=== PATIENT | female | born 1935 | race Caucasian/White ===

== ENCOUNTER 2018-08-10 23:28 | Inpatient (IN) | payer MEDICARE ==
[~2018-08-10] VITALS: Ht 162.6 cm; Wt 57.2 kg
[2018-08-10 23:33] VITALS: BP_SYST 158
--- NOTE | 2018-08-10 23:35 | NUR ---
Patient brought in by EMS. aaox4 and able to verbalize her needs. Able to ambulate with a steady. Complaints s/p fall from standing position which was unwitnessed. Patient states she was twisting her body to place a device on a craddle. States from foot came out of her slippers and tripped. Patient hit her head on the table and injured left side and left head with with laceration. Pain is at 8/10 and the back. Denies any n/v and sob. Denies any fever.
--- NOTE | 2018-08-10 23:36 | NUR ---
Patient to ER bed 06 to gown for evaluation. Side rails up. Report given to CIELO Pantoja
--- NOTE | 2018-08-11 00:24 | NUR ---
ER at bedside examining patient.
[2018-08-11] MEDS ORDERED: ACETAMINOPHEN 500 MG TABLET PO ONE (00:45)
[2018-08-11] MEDS ORDERED: LIDOCAINE 1%, 20 ML MDV 20 ML ONE (03:06)
[2018-08-11 03:32] LABS: BASOPHILS % (AUTO) 0.2 % (0.0-2.0); EOSINOPHILS # (AUTO) 0.2 K/uL (0.0-0.4); EOSINOPHILS % (AUTO) 1.7 % (0.0-4.0); HEMATOCRIT 33.6 % (36-48); HEMOGLOBIN 11.3 g/dL (12.0-16.0); LYMPHOCYTES # (AUTO) 0.8 K/uL (1.0-5.5); LYMPHOCYTES % (AUTO) 6.3 % (20.5-51.5); MEAN CORPUSCULAR HEMOGLOBIN 31 pg (27-31); MEAN CORPUSCULAR HGB CONC 34 % (32-36); MEAN CORPUSCULAR VOLUME 93 fL (79.0-98.0); MONOCYTES # (AUTO) 0.9 K/uL (0.0-1.0); MONOCYTES % (AUTO) 7.2 % (1.7-9.3); NEUTROPHILS % (AUTO) 84.6 % (40.0-70.0); PLATELET COUNT (AUTO) 187 K/uL (130-430); RED BLOOD CELL COUNT(AUTO) 3.62 MIL/uL (4.2-6.2); WHITE BLOOD COUNT (AUTO) 11.9 K/uL (4.8-10.8)
[2018-08-11 03:34] LABS: BILIRUBIN,URINE NEGATIVE (NEGATIVE); BLOOD, URINE NEGATIVE (NEGATIVE); CLARITY/URINE CLEAR (CLEAR); COLOR,URINE YELLOW (YELLOW); GLUCOSE,URINE NEGATIVE (NEGATIVE); KETONES,URINE NEGATIVE (NEGATIVE); LEUKOCYTE ESTERASE ,URINE 1+ (NEGATIVE); NITRITE, URINE NEGATIVE (NEGATIVE); PROTEIN URINE NEGATIVE (NEGATIVE); UROBILINOGEN,URINE 0.2 (0.2-1.0)
--- NOTE | 2018-08-11 03:45 | NUR ---
Patient has a 0.5 cm laceration to left occiput. Dr. Johnston applied judie using sterile technique. Edges well approximated. Site cleansed with Betadine. No bleeding noted. Pt tolerated well.
[2018-08-11 03:48] LABS: ANION GAP 8 (5-15); CHLORIDE 104 mmol/L (98-107); GLUCOSE 116 mg/dL (70-99); POTASSIUM 4.2 mmol/L (3.5-5.1); SODIUM SERUM 139 mmol/L (136-145); UREA NITROGEN, BLOOD 27 mg/dL (8-21)
[2018-08-11 03:57] LABS: ALANINE AMINOTRANSFERASE 13 U/L (12-78); ALBUMIN 2.9 g/dL (3.4-4.8); ASPARTATE AMINOTRANSFERASE 17 U/L (10-37); TOTAL BILIRUBIN 0.4 mg/dL (0.0-1.0)
[2018-08-11 03:58] LABS: BACTERIA,URINE FEW /HPF (None Seen)
[2018-08-11] MEDS ORDERED: VITD2000 PO (04:15)
[2018-08-11] MEDS ORDERED: CRAN1CAP8 PO (04:15)
[2018-08-11] MEDS ORDERED: METH2.5T PO (04:15)
[2018-08-11] MEDS ORDERED: MULT-1173 PO (04:15)
[2018-08-11] MEDS ORDERED: DONE5TAB33 PO (04:15)
[2018-08-11] MEDS ORDERED: ACYC400T PO (04:15)
[2018-08-11] MEDS ORDERED: FOLI-43 PO (04:15)
[2018-08-11] MEDS ORDERED: ASPI-1153 PO (04:15)
[2018-08-11] MEDS ORDERED: LYSI500T36 PO (04:15)
--- NOTE | 2018-08-11 04:16 | NUR ---
Medication reconciliation completed with information provided by son. Any prior medication reconciliation on file was reviewed and corrected. Addendum: 08/11/18 at 0435 by [email or web address] Medications reconcilation given by son via phone. SonWilian was reading medication bottles. Per pt, "those are not the right medications. You need to contact Shira, my caregiver." Son gave nurse [facility] phone number to verify medication list, [facility] and mail order [phone]. Pharmacy did not answer.
--- NOTE | 2018-08-11 04:55 | NUR ---
# 20 gauge angiocath placed to Left wrist. Use of asceptic technique. Opsite placed over site. Blood return noted. Flushed with 10 cc of normal saline. No evidence of infiltration noted. Patient tolerated well.
--- NOTE | 2018-08-11 05:12 | NUR ---
Medication was given, pt tolerated well. No adverse reaction, will continue to monitor.
[2018-08-11] MEDS ORDERED: ASPIRIN 325 MG TABLET PO ONE (05:15)
[2018-08-11] MEDS ORDERED: NITROGLYCERIN 0.4 MG TAB.SUBL SL PRN (05:15)
--- NOTE | 2018-08-11 05:21 | NUR ---
Transfer to Telemetry via ACLS protocol. Licensed nurse present. IV present no signs or symptoms of infiltration.
--- NOTE | 2018-08-11 05:21 | NUR ---
Patient will be admitted to care of Dr. Davidson. Admitted to Telemetry unit. Will go to room 104 B. Belongings list completed. Summary report printed. Report will be given at bedside.
[2018-08-11] MEDS ORDERED: ASPIRIN 325 MG TABLET ONE (05:23)
--- NOTE | 2018-08-11 05:38 | NUR ---
ADMISSION NOTE Received patient from ER via alex, received report from ROBE BUCK. Patient admitted with diagnosis of ELEVATED TROPONIN. Patient oriented to hospital routine, call light, toileting and safety-patient verbalized understanding.
[2018-08-11 05:48] VITALS: BP_SYST 138
--- NOTE | 2018-08-11 06:38 | NUR ---
Closing Notes Patient resting in bed with eyes closed, easily aroused. Patient denies any acute distress or pain at this time. Breathing is even and unlabored. IV site patent/clean/dry, no S/S infection/infiltration noted. Needs addressed throughout shift. Call light in hand, fall precautions in place. Will continue to monitor for changes and safety and endorse all patient care/needs to oncoming nurse.
--- NOTE | 2018-08-11 07:25 | NUR ---
Am Rounds: Patient awake during rounds. Bedside report given by night nurse donna. Hard of hearing. Not in any distress. Call light with in reach. Bed locked at lowest position. Bed alarm on.
--- NOTE | 2018-08-11 07:28 | NUR ---
CONSULTATION PAGED REASON FOR CONSULTATION:ELWEVATED TROPONIN WAS CONSULT CALLED?Y PERSON WHO WAS NOTIFIED:MOLLY CONSULTING PHYSICIAN:SHAINA BOGGS ( REEL WINDER) PLATFORM OPERATIONS DIRECTOR SPECIALTY:CARDIO PLATFORM OPERATIONS DIRECTOR PHONE NUMBER:[phone] ORDERING PHYSICIAN:MARIA TERESA KIM
--- NOTE | 2018-08-11 07:29 | NUR ---
CARDIAC CONSULT Dr. Dugan/ Dr. Perdomo prevocational/rehabilitation counselor Spoke to Mary , reason for consult elevated troponin
[2018-08-11] MEDS ORDERED: ALBUTEROL SULFATE 0.083% 2.5 MG/3 ML VIAL.NEB INH PRN (07:30)
[2018-08-11] MEDS ORDERED: ACETAMINOPHEN 325 MG TABLET PO PRN (07:30)
[2018-08-11] MEDS ORDERED: MORPHINE 4 MG/ML INJ. SYRINGE IVP PRN (07:30)
--- NOTE | 2018-08-11 07:30 | NUR ---
cardio: Spoke with Dr. sloan and aware about the consult and relayed elevated troponin.Ordered echo and repeat troponin,but Dr melchor put the order in already.
[2018-08-11 08:00] VITALS: BP_SYST 151
[2018-08-11 08:26] VITALS: BP_SYST 138
[2018-08-11] MEDS ORDERED: METOPROLOL TARTRATE 25 MG TABLET PO ONE (08:45)
[2018-08-11] MEDS: cefTRIAXone 1 GM in D5W 50 ML IV SCH (08:48)
[2018-08-11] MEDS: ASPIRIN 81 MG TAB.CHEW PO SCH (08:49)
[2018-08-11] MEDS: ENOXAPARIN SODIUM 40 MG/0.4 ML SYRINGE SUBCUT SCH (08:49)
[2018-08-11] MEDS ORDERED: ASPIRIN 81 MG TAB.CHEW PO SCH (09:00)
[2018-08-11] MEDS: ACYCLOVIR 400 MG TABLET PO SCH ×3 (09:19→21:21)
[2018-08-11] MEDS: FOLIC ACID 1 MG TABLET PO SCH (09:19)
--- NOTE | 2018-08-11 10:05 | NUR ---
RN ROUNDING: HAD BREAKFAST. NO DISTRESS. CONTINUE TO MONITOR.
[2018-08-11 12:05] VITALS: BP_SYST 146
--- NOTE | 2018-08-11 12:13 | NUR ---
CONSULTATION PAGED REASON FOR CONSULTATION:POSSIBLE ABSCESS WAS CONSULT CALLED?Y PERSON WHO WAS NOTIFIED:ARMANDO CONSULTING PHYSICIAN:RALF HILL SALES SUPPORT COORDINATOR SPECIALTY:SURGEON SALES SUPPORT COORDINATOR PHONE NUMBER:[phone] ORDERING PHYSICIAN:LYLE ALMEIDA Addendum: 08/11/18 at 1330 by Amish Song DC/ DOCUMENTED ON WRONG PATIENT. Addendum: 08/11/18 at 2222 by Lizzie Mary DC/ WRONG PATIENT
--- NOTE | 2018-08-11 13:31 | NUR ---
RN ROUNDING: PATIENT JUST FINISHED HAVING LUNCH,REQUESTED TO PUT AWAY THE TRAY. NO DISTRESS. CALL LIGHT WITH IN REACH. BED LOCKED AT LOWEST POSITION. BED ALARM ON.
--- NOTE | 2018-08-11 15:16 | NUR ---
cardio rounds: Dr sloan came and saw the patient ,spoke to patient's son and patient ,updates and plan of care given.
[2018-08-11 16:00] VITALS: BP_SYST 149
--- NOTE | 2018-08-11 16:22 | NUR ---
BRP WITH ASSIST: STUDENT NURSE ASSISTED PATIENT TO THE TOILET,GOOD GAIT.STUDENT NURSE STAYED WITH THE PATIENT WHILE IN THE TOILET.NEEDS SUPERVISION AT ALL TIMES.
--- NOTE | 2018-08-11 18:41 | NUR ---
CLOSING NOTES: PATIENT ON THE BED.RESTING.JUST ATE DINNER. CALL LIGHT WITH IN REACH. BED LOCKED AT LOWEST POSITION.BED ALARM ON.CONTINUE TO MONITOR.
--- NOTE | 2018-08-11 19:52 | NUR ---
INITIAL NOTES: PT is awake, alert, hard of hearing, assisted to bathroom, steady gait. no sob and distress, back to bed. pt os hard of hearing, redness noted at left and right buttocks, ecchymosis at left lower and and left elbow. needs attended. call light in reach. will give report to yayo stein night nurse.
[2018-08-11 20:18] VITALS: BP_SYST 143
--- NOTE | 2018-08-11 20:50 | NUR ---
VOIDED VIA BED GOLDBERG WITHOUT DIFFICULTY ,CLEAR ELMIRA COLOR.
[2018-08-11] MEDS ORDERED: DONEPEZIL HCL 5 MG TABLET (ARICEPT) PO SCH (21:00)
--- NOTE | 2018-08-11 21:00 | NUR ---
MEDS ADMIN: PATIENT RESTING QUITELY. HARD OF HEARING IN BOTH EARS WITH HEARING AIDS ON.TOOK ALL DUE PO MEDS WITHOUT DIFFICULTY.SALINE LOCK FLUSHED EASILY.
--- NOTE | 2018-08-11 21:05 | NUR ---
SKIN INTEGRITY: POSTERIOR HEAD WITH SMALL LACERATION WITH 3 SHARLENE. NO REDNESS NOR DRAINAGE. BOTH ELBOWS LEFT FLANK ,HIPS , AND SACRAL AREAS WITH REDNESS AND BRUISING.NO SKIN BREAKDOWN.
--- NOTE | 2018-08-11 23:05 | NUR ---
ASSISTED TO BATHROOM TO VOID,WITH STEADY GAIT. BOTH HAND FINGERS DEFORMED DUE TO RA AND OA. PAIN TOLERABLE. REFUSE PAIN MEDS.
[2018-08-12 00:18] VITALS: BP_SYST 137
--- NOTE | 2018-08-12 02:30 | NUR ---
COUGH: HAVING MOIST COUGH WITH SLIGHT SOB AFTER. DENIES CHEST PAIN.
--- NOTE | 2018-08-12 03:25 | NUR ---
CONTINUE TO COUGH. WILL CALL RT FOR BREATHING TREATMENT.
--- NOTE | 2018-08-12 03:40 | NUR ---
RT ASHLEIGH HERE. SEEN PATIENT SAYS ASLEEP. NO TX GIVEN.
--- NOTE | 2018-08-12 04:20 | NUR ---
CALLED TO VOID IN THE BATHROOM. ASSISTED ,GAIT STEADY. DENIES CHEST PAIN. HAS TOLERABLE PAIN. REFUSE PAIN MEDS.
--- NOTE | 2018-08-12 06:50 | NUR ---
CLOSING: ORIENTED X3. HAD BEEN ASSISTING TO BATHROOM TO VOID. OFFERED PAIN MED X3 BUT REFUSE. VERBALIZED FEELS OKAY WITHOUT ANY DRUGS. PAIN TOLERABLE. NO ACUTE CARDIOPULMONARY DISTRESS. CALL LIGHT WITHIN REACH. SAFETY MEASURES OBSERVED. BED ALARM ON.
[2018-08-12 07:58] LABS: ANION GAP 7 (5-15); CALCIUM 9.4 mg/dL (8.4-11.0); CHLORIDE 106 mmol/L (98-107); CREATININE 0.88 mg/dL (0.55-1.30); GLUCOSE 85 mg/dL (70-99); POTASSIUM 4.3 mmol/L (3.5-5.1); SODIUM SERUM 141 mmol/L (136-145); UREA NITROGEN, BLOOD 20 mg/dL (8-21)
[2018-08-12 08:00] VITALS: BP_SYST 161
--- NOTE | 2018-08-12 08:00 | NUR ---
Opening Note Report received from [facility] shift nurse. Patient is resting in bed. No signs of distress noted. IV is on the left wrist 20g, saline locked. Call light is within reach and bed is in low position. Will continue to monitor troponin levels.
--- NOTE | 2018-08-12 08:14 | NUR ---
Nutrition Update Kamari Scale 17 noted. Pt admitted for elevated troponin Diet: cardiac low cholesterol low fat 2gm Na diet BMI: 21.6 kg/m2 RD to follow per nutrition care standards.
[2018-08-12 08:21] LABS: ALANINE AMINOTRANSFERASE 14 U/L (12-78); ALBUMIN 2.8 g/dL (3.4-4.8); ASPARTATE AMINOTRANSFERASE 24 U/L (10-37); TOTAL BILIRUBIN 0.8 mg/dL (0.0-1.0)
[2018-08-12 08:42] LABS: BASOPHILS % (AUTO) 0.5 % (0.0-2.0); EOSINOPHILS # (AUTO) 0.2 K/uL (0.0-0.4); EOSINOPHILS % (AUTO) 3.7 % (0.0-4.0); HEMATOCRIT 31.3 % (36-48); HEMOGLOBIN 10.7 g/dL (12.0-16.0); LYMPHOCYTES # (AUTO) 0.9 K/uL (1.0-5.5); LYMPHOCYTES % (AUTO) 15.5 % (20.5-51.5); MEAN CORPUSCULAR HEMOGLOBIN 31 pg (27-31); MEAN CORPUSCULAR HGB CONC 34 % (32-36); MEAN CORPUSCULAR VOLUME 92 fL (79.0-98.0); MONOCYTES # (AUTO) 0.5 K/uL (0.0-1.0); MONOCYTES % (AUTO) 8.2 % (1.7-9.3); NEUTROPHILS # (AUTO) 3.9 K/uL (1.8-7.7); NEUTROPHILS % (AUTO) 72.1 % (40.0-70.0); PLATELET COUNT (AUTO) 166 K/uL (130-430); RED BLOOD CELL COUNT(AUTO) 3.41 MIL/uL (4.2-6.2); RED CELL DISTRIBUTION WIDTH 14.3 % (9.0-15.0); WHITE BLOOD COUNT (AUTO) 5.5 K/uL (4.8-10.8)
[2018-08-12] MEDS: cefTRIAXone 1 GM in D5W 50 ML IV SCH (09:12)
[2018-08-12] MEDS: FOLIC ACID 1 MG TABLET PO SCH (09:13)
[2018-08-12] MEDS: ASPIRIN 81 MG TAB.CHEW PO SCH (09:13)
[2018-08-12] MEDS: ENOXAPARIN SODIUM 40 MG/0.4 ML SYRINGE SUBCUT SCH (09:13)
[2018-08-12] MEDS: ACYCLOVIR 400 MG TABLET PO SCH (09:13)
--- NOTE | 2018-08-12 10:15 | NUR ---
Rounds Assisted the patient to the bathroom and back into bed.
[2018-08-12 12:00] VITALS: BP_SYST 143
--- NOTE | 2018-08-12 12:35 | NUR ---
Rounds Patient worked with PT. tolerated well.
--- NOTE | 2018-08-12 14:31 | NUR ---
Rounds Assisted the patient to the restroom and back into bed.
[2018-08-12 14:44] VITALS: BP_SYST 161
--- NOTE | 2018-08-12 15:27 | NUR ---
transition of care note All transition of care instructions were provided to the Valentina Aranda, the patient's daughter. She verbalized understanding of all. IV and ID band were removed. Patient left the unit in stable condition.
--- NOTE | 2018-08-14 15:45 | NUR ---
DISCHARGE FOLLOW UP PHONE CALL: PICKING BELT OPERATOR phoned pt who states she is doing fair. Pt states she has an appointment with PCP, Dr. Hogue on 08/16 and dtr will be driving her to MD appointment. Pt did not have any questions about discharge instructions but asked information regarding [facility]. PICKING BELT OPERATOR provided [facility] phone number. No further needs/concerns at this time but will call if any arise.
== END 2018-08-12 15:27 | disposition home or self-care (01) | DRG 281 ==
LOC: SED 23:28 → STU 08-11 04:45
PROVIDERS: ADMIT Internal Medicine; ATTEND Internal Medicine
DX: I21.A1 Myocardial infarction type 2 (principal); E44.1 Mild protein-calorie malnutrition; I10 Essential (primary) hypertension; M06.9 Rheumatoid arthritis, unspecified; F03.90 Unspecified dementia, unspecified severity, without behavioral disturbance, psychotic disturbance, mood disturbance, and anxiety; Z88.1 Allergy status to other antibiotic agents; Z88.2 Allergy status to sulfonamides
CPT/HCPCS: 36415; 70450-TC; 71045; 71100; 72125-TC; 80053; 81000-TC; 84484; 85025; 93005; 93306; 94760; 99285; G0378; J0696; J1650; J2001; J7060; J8610

== ENCOUNTER 2019-07-01 13:44 | Emergency (ER) | payer OTHER ==
[~2019-07-01] VITALS: Ht 162.6 cm; Wt 52.2 kg
[~2019-07-01 13:44] MED LIST: ACYC400T PO; ASPI-1153 PO; CRAN1CAP8 PO; DONE5TAB33 PO; FOLI-43 PO; LYSI500T36 PO; METH2.5T PO; MULT-1173 PO; VITD2000 PO
[2019-07-01 13:48] VITALS: BP_SYST 159
[2019-07-01] MEDS ORDERED: DIPH-TET-PERTUS Vaccine 0.5 ML VIAL (ADACEL) I.M. ONE (15:30)
[2019-07-01] MEDS: ACETAMINOPHEN 500 MG TABLET PO ONE (16:01)
[2019-07-01] MEDS: BACITRACIN 1 GM OINT TP ONE (16:01)
[2019-07-01] MEDS: DIPH-TET Vacc 0.5 ML VIAL I.M. ONE (16:02)
[2019-07-01 16:52] VITALS: BP_SYST 136
== END 2019-07-01 16:52 | disposition home or self-care (01) ==
LOC: SED 13:44
DX: S51.011A Laceration without foreign body of right elbow, initial encounter (principal); S46.912A Strain of unspecified muscle, fascia and tendon at shoulder and upper arm level, left arm, initial encounter; S20.222A Contusion of left back wall of thorax, initial encounter; R03.0 Elevated blood-pressure reading, without diagnosis of hypertension; J45.909 Unspecified asthma, uncomplicated; Z88.1 Allergy status to other antibiotic agents; Z79.82 Long term (current) use of aspirin; Z79.899 Other long term (current) drug therapy; W01.0XXA Fall on same level from slipping, tripping and stumbling without subsequent striking against object, initial encounter; Y93.89 Activity, other specified; Y92.89 Other specified places as the place of occurrence of the external cause; Y99.8 Other external cause status
CPT/HCPCS: 71046-TC; 71100; 73030; 90714; 93005; 99283

== ENCOUNTER 2019-08-14 10:44 | Emergency (ER) | payer MEDICARE, OTHER ==
[~2019-08-14] VITALS: Ht 162.6 cm; Wt 52.2 kg
--- NOTE | 2019-08-14 10:44 | NUR ---
BROUGHT IN BY [facility] AND PLACED IN BED #6, TRIAGED AND REPORT GIVEN TO VIKI
[2019-08-14 10:45] VITALS: BP_SYST 160
--- NOTE | 2019-08-14 11:00 | NUR ---
Patient presented to ER with lip laceration. Patient A&Ox4, [place], laceration:Lip, Left forarm & chin. skin tear: Left knuckles, Right arm, cap refill <3, pain5/10, denies N/V/D. Patient states she fell at home while phone was ringing. Daughter of patient at bedside states fall was unwittnessed.
--- NOTE | 2019-08-14 11:04 | NUR ---
ER at bedside examining patient.
[2019-08-14] MEDS ORDERED: LIDOCAINE 1% 10 MG/ML, 20 ML MDV INJ ONE (11:45)
--- NOTE | 2019-08-14 12:15 | NUR ---
Patient has a 2 cm laceration to Chin . Dr. Valentine applied sutures using sterile technique. Edges well approximated. Site cleansed with sterile water. Dressing of nonadhesive gauze applied to site. No bleeding noted. Pt tolerated well.
[2019-08-14 12:30] VITALS: BP_SYST 148
--- NOTE | 2019-08-14 12:44 | NUR ---
Patient given written and verbal discharge instructions and verbalizes understanding. ER MD Valenitne discussed with patient the results and treatment provided. Patient in stable condition. ID arm band removed. Rx of Clindamycin given. Patient educated on pain management and to follow up with PMD. Pain Scale 0. Opportunity for questions provided and answered. Medication side effect fact sheet provided.
== END 2019-08-14 12:44 | disposition home or self-care (01) ==
LOC: SED 10:44
DX: S01.511A Laceration without foreign body of lip, initial encounter (principal); S01.81XA Laceration without foreign body of other part of head, initial encounter; S51.811A Laceration without foreign body of right forearm, initial encounter; S51.812A Laceration without foreign body of left forearm, initial encounter; J45.909 Unspecified asthma, uncomplicated; Z79.82 Long term (current) use of aspirin; Z79.899 Other long term (current) drug therapy; Z88.1 Allergy status to other antibiotic agents; W01.0XXA Fall on same level from slipping, tripping and stumbling without subsequent striking against object, initial encounter; Y93.89 Activity, other specified; Y92.89 Other specified places as the place of occurrence of the external cause; Y99.8 Other external cause status
CPT/HCPCS: 12013; 99284; J2001

== ENCOUNTER 2020-03-24 15:47 | Emergency (ER) | payer MEDICARE ==
[~2020-03-24] VITALS: Ht 154.9 cm; Wt 56.7 kg
--- NOTE | 2020-03-24 15:51 | NUR ---
Patient to ER bed 04 to gown for evaluation. Side rails up.
[2020-03-24 16:03] VITALS: BP_SYST 154
--- NOTE | 2020-03-24 16:09 | NUR ---
pt in [facility] with side rails up. GCS=15, alert and oriented to name, place and event. VSS. dressing to head wound inplace. bleeding controlled. patient denies any knock out event and was aware at all times.
--- NOTE | 2020-03-24 16:43 | NUR ---
YVAN, DAUGHTER OF PT, CALLED TO GIVE MORE CONTACT NUMBERS. H: [phone] MAEVE (YVAN'S ) : [phone]
--- NOTE | 2020-03-24 17:28 | NUR ---
pt returned from CT. pt alert and oriented. no acute distress noted.
[2020-03-24] MEDS ORDERED: DIPH-TET-PERTUS Vaccine 0.5 ML VIAL (ADACEL) I.M. ONE (18:15)
--- NOTE | 2020-03-24 18:30 | NUR ---
pt given tdap inj. tolerated well. information sheet given.
--- NOTE | 2020-03-24 18:57 | NUR ---
Patient given written and verbal discharge instructions and verbalizes understanding. ER MD STERN discussed with patient the results and treatment provided. Patient in stable condition. ID arm band removed. Patient educated on pain management and to follow up with PMD. Pain Scale 1/10. Opportunity for questions provided and answered. Medication side effect fact sheet provided.
[2020-03-24 19:35] VITALS: BP_SYST 154
== END 2020-03-24 18:57 | disposition home or self-care (01) ==
LOC: SED 15:47
DX: S01.01XA Laceration without foreign body of scalp, initial encounter (principal); J45.909 Unspecified asthma, uncomplicated; M06.9 Rheumatoid arthritis, unspecified; Z79.899 Other long term (current) drug therapy; Z79.82 Long term (current) use of aspirin; Z88.1 Allergy status to other antibiotic agents; W01.0XXA Fall on same level from slipping, tripping and stumbling without subsequent striking against object, initial encounter; Y93.89 Activity, other specified; Y92.89 Other specified places as the place of occurrence of the external cause; Y99.8 Other external cause status
CPT/HCPCS: 70470-TC; 72125-TC; 90715; 99285

== ENCOUNTER 2021-10-22 10:33 | Emergency (ER) | payer MEDICARE, SELFPAY ==
[~2021-10-22] VITALS: Ht 157.5 cm; Wt 54.4 kg
[2021-10-22 10:33] VITALS: BP_SYST 146
[~2021-10-22 10:33] MED LIST changes: -ACYC400T PO; +ACYC400T19 PO; -ASPI-1153 PO; +ASPI-1393 PO
[2021-10-22 12:09] LABS: BASOPHILS # (AUTO) 0.1 K/uL (0.0-0.2); BASOPHILS % (AUTO) 1.1 % (0.0-2.0); EOSINOPHILS # (AUTO) 0.2 K/uL (0.0-0.4); EOSINOPHILS % (AUTO) 2.7 % (0.0-4.0); HEMATOCRIT 35.3 % (36-48); HEMOGLOBIN 11.5 g/dL (12.0-16.0); LYMPHOCYTES # (AUTO) 0.6 K/uL (1.0-5.5); LYMPHOCYTES % (AUTO) 8.6 % (20.5-51.5); MEAN CORPUSCULAR HEMOGLOBIN 28 pg (27-31); MEAN CORPUSCULAR HGB CONC 33 % (32-36); MEAN CORPUSCULAR VOLUME 84 fL (79.0-98.0); MONOCYTES # (AUTO) 0.4 K/uL (0.0-1.0); MONOCYTES % (AUTO) 5.8 % (1.7-9.3); NEUTROPHILS # (AUTO) 5.8 K/uL (1.8-7.7); NEUTROPHILS % (AUTO) 81.8 % (40.0-70.0); PLATELET COUNT (AUTO) 192 K/uL (130-430); RED CELL DISTRIBUTION WIDTH 14.7 % (9.0-15.0); WHITE BLOOD COUNT (AUTO) 7.1 K/uL (4.8-10.8)
[2021-10-22 12:21] LABS: ANION GAP 7 (5-15); CALCIUM 8.8 mg/dL (8.4-11.0); CHLORIDE 102 mmol/L (98-107); CREATININE 0.82 mg/dL (0.55-1.30); GLUCOSE 107 mg/dL (70-99); POTASSIUM 4.5 mmol/L (3.5-5.1); SODIUM SERUM 137 mmol/L (136-145); UREA NITROGEN, BLOOD 30 mg/dL (8-21)
[2021-10-22 12:27] LABS: ALANINE AMINOTRANSFERASE 17 U/L (12-78); ALBUMIN 3.3 g/dL (3.4-4.8); ASPARTATE AMINOTRANSFERASE 22 U/L (10-37); TOTAL BILIRUBIN 0.4 mg/dL (0.0-1.0)
[2021-10-22 12:58] LABS: BILIRUBIN,URINE NEGATIVE (NEGATIVE); CLARITY/URINE CLEAR (CLEAR); COLOR,URINE YELLOW (YELLOW); GLUCOSE,URINE NEGATIVE (NEGATIVE); KETONES,URINE NEGATIVE (NEGATIVE); LEUKOCYTE ESTERASE ,URINE NEGATIVE (NEGATIVE); NITRITE, URINE NEGATIVE (NEGATIVE); PH,URINE 5.5 (5.0-8.0); PROTEIN URINE NEGATIVE (NEGATIVE); UROBILINOGEN,URINE 0.2 (0.2-1.0)
[2021-10-22 13:09] LABS: BLOOD, URINE TRACE (NEGATIVE)
[2021-10-22 13:18] LABS: BACTERIA,URINE None Seen /HPF (None Seen); WBC,URINE 0-3 /HPF (0-3)
[2021-10-22 14:15] VITALS: BP_SYST 160
== END 2021-10-22 14:15 | disposition home or self-care (01) ==
LOC: SED 10:33
DX: F03.90 Unspecified dementia, unspecified severity, without behavioral disturbance, psychotic disturbance, mood disturbance, and anxiety (principal); I10 Essential (primary) hypertension
CPT/HCPCS: 36415; 80053; 81000; 85025; 99283

== ENCOUNTER 2022-06-12 19:02 | Inpatient (IN) | payer MEDICARE, OTHER ==
[~2022-06-12] VITALS: Ht 157.5 cm; Wt 68.0 kg
[2022-06-12 19:05] VITALS: BP_SYST 139
--- NOTE | 2022-06-12 19:09 | NUR ---
Pt from home BIBA for mechanical fall. Pt slipped and fell on the way to mailbox and walked back into the house. Pt c/o of pain to the left elbow radiating to shoulder and hematoma to the back of the head. Pt reports 01/03. VSS. Hx of dementia.
[2022-06-12 20:34] LABS: BASOPHILS # (AUTO) 0.1 K/uL (0.0-0.2); BASOPHILS % (AUTO) 0.5 % (0.0-2.0); EOSINOPHILS # (AUTO) 0.1 K/uL (0.0-0.4); EOSINOPHILS % (AUTO) 1.2 % (0.0-4.0); HEMATOCRIT 36.5 % (36-48); HEMOGLOBIN 12.1 g/dL (12.0-16.0); LYMPHOCYTES # (AUTO) 0.6 K/uL (1.0-5.5); LYMPHOCYTES % (AUTO) 5.7 % (20.5-51.5); MEAN CORPUSCULAR HEMOGLOBIN 29 pg (27-31); MEAN CORPUSCULAR HGB CONC 33 % (32-36); MEAN CORPUSCULAR VOLUME 89 fL (79.0-98.0); MONOCYTES # (AUTO) 0.8 K/uL (0.0-1.0); MONOCYTES % (AUTO) 6.9 % (1.7-9.3); NEUTROPHILS # (AUTO) 9.6 K/uL (1.8-7.7); NEUTROPHILS % (AUTO) 85.7 % (40.0-70.0); PLATELET COUNT (AUTO) 150 K/uL (130-430); RED BLOOD CELL COUNT(AUTO) 4.12 MIL/uL (4.2-6.2); RED CELL DISTRIBUTION WIDTH 14.2 % (9.0-15.0); WHITE BLOOD COUNT (AUTO) 11.1 K/uL (4.8-10.8)
--- NOTE | 2022-06-12 21:42 | NUR ---
Valentina Khan cell [phone] daughter
[2022-06-12 21:55] LABS: ANION GAP 8 (5-15); CALCIUM 9.1 mg/dL (8.4-11.0); CHLORIDE 107 mmol/L (98-107); CREATININE 1.66 mg/dL (0.55-1.30); GLUCOSE 145 mg/dL (70-99); POTASSIUM 4.7 mmol/L (3.5-5.1); UREA NITROGEN, BLOOD 31 mg/dL (8-21)
[2022-06-12 22:00] LABS: ALANINE AMINOTRANSFERASE 15 U/L (12-78); ALBUMIN 3.5 g/dL (3.4-4.8); ASPARTATE AMINOTRANSFERASE 17 U/L (10-37); TOTAL BILIRUBIN 0.3 mg/dL (0.0-1.0)
--- NOTE | 2022-06-12 22:13 | NUR ---
MD DR STERN AT BEDSIDE
--- NOTE | 2022-06-12 22:40 | NUR ---
Covid swab sent to the lab
--- NOTE | 2022-06-12 23:01 | NUR ---
REPORT GIVEN TO FRANK BUCK
[2022-06-12 23:56] LABS: BILIRUBIN,URINE NEGATIVE (NEGATIVE); BLOOD, URINE NEGATIVE (NEGATIVE); COLOR,URINE YELLOW (YELLOW); GLUCOSE,URINE TRACE (NEGATIVE); KETONES,URINE TRACE (NEGATIVE); LEUKOCYTE ESTERASE ,URINE 1+ (NEGATIVE); NITRITE, URINE NEGATIVE (NEGATIVE); PROTEIN URINE TRACE (NEGATIVE); UROBILINOGEN,URINE 0.2 (0.2-1.0)
[2022-06-13] MEDS ORDERED: HYDROcodone/ACETAMIN 5-325 MG TAB (NORCO/ VICODIN) PO ONE
[2022-06-13 00:02] LABS: CLARITY/URINE HAZY (CLEAR)
[2022-06-13 00:12] LABS: RBC,URINE NONE SEEN /HPF (0-3)
[2022-06-13 00:13] LABS: BACTERIA,URINE FEW /HPF (None Seen)
[2022-06-13 00:14] LABS: MUCUS,URINE 1+ /LPF (None Seen)
--- NOTE | 2022-06-13 00:34 | NUR ---
Admit bed requested Patient will be admitted to care of Admitted to MS unit. Diagnosis Mechanical Fall Inpatient (Yes or No) yes Observation (Yes or No) no Orientation concerns or request close to nursing station (Yes or No) no Covid Status pending On vent or bipap no Isolation requirements no Needs a sitter no From Home (Yes or if No enter name of facility) yes Requires Dialysis (Yes or No) no Med Rec Completed (Yes of No) pending
[2022-06-13] MEDS ORDERED: LORazepam 2 MG/ML VIAL IVP ONE (01:30)
[2022-06-13] MEDS ORDERED: DIPHENHYDRAMINE INJ 50 MG/ML VIAL IVP ONE (01:30)
--- NOTE | 2022-06-13 02:50 | NUR ---
Patient will be admitted to care of Dr Evans. Admitted to med surg unit. Will go to room 103A. Belongings list completed. Complete and up to date summary report printed. SBAR report given to CIELO Milner at bedside with opportunity for questions.
[2022-06-13 04:57] VITALS: BP_SYST 136
--- NOTE | 2022-06-13 05:25 | NUR ---
NEW ADMISSION FROM ED, S/P MECHANICAL FALL, PATIENT HAS LACERATION TO LEFT ELBOW, INJURY TO TO RIGHT HIP AND LEFT ARM V/S STABLE. PATIENT IS CONTINENT OF URINE AND HECTOR HARD OF HEARING. UNABLE TO GET PERTINENT INFORMATION FROM PATIENT
--- NOTE | 2022-06-13 07:15 | NUR ---
OPENING RECEIVED SBAR FROM NIGHT NURSE, PATIENT IS LAYING IN BED WITH EYES CLOSED, RESPIRATIONS ARE EVEN AND NON LABORED, BED IS LOW, LOCKED AND ALAMR ON, CALL LIGHT WITH IN REACH
[2022-06-13 08:00] VITALS: BP_SYST 143
--- NOTE | 2022-06-13 08:06 | NUR ---
FAMILY SPOKE WITH DAUGHTER YVAN, RECEIVED INFORMATIONS REGARDING PATIENT. ANSWERED ALL QUESTIONS DAUGHTER VERBALIZED UNDERSTANDING.
[2022-06-13] MEDS ORDERED: D5LR 500 ML IV ONE (11:15)
--- NOTE | 2022-06-13 11:36 | NUR ---
consultation CALLED DR Sweta GALINDO FOR CONSULTATION REGARDING DISPLACED LEFT ELBOW. SPOKE WITH JENA Addendum: 06/13/22 at 1141 by Harsh Verdugo RN PER JENA WILL BE SEEN BY DR BROOKS
[2022-06-13 11:56] LABS: C-REACTIVE PROTEIN QUANT 3.7 mg/dL (0-0.5); THYROID STIMULATING HORMONE 0.88 uIu/mL (0.34-4.82)
--- NOTE | 2022-06-13 12:10 | NUR ---
MD DR BROOKS BEDSIDE EXAMINING PATIENT, SLING ORDERED. NO SURGERY FOLLOWUP IN HIS OFFICE IN 2 WEEKS
[2022-06-13 12:15] VITALS: BP_SYST 131
--- NOTE | 2022-06-13 12:28 | NUR ---
MD DR WHYTE BEDSIDE EXAMINING PATIENT
--- NOTE | 2022-06-13 12:30 | NUR ---
FAMILY SPOKE WITH DAUGHTER YVAN, UPDATED HER ON STATUS OF PATIENT, ANSWERED ALL QUESTIONS, DAUGHTER VERBALIZED UNDERSTANDING.
[2022-06-13] MEDS: cefTRIAXone 1 GM IVPB PREMIX 50 ML IV SCH (13:58)
--- NOTE | 2022-06-13 16:30 | NUR ---
ELBOW SLING PLACE ELBOW SLING ON PATIENT'S LEFT ELBOW
[2022-06-13 18:34] VITALS: BP_SYST 136
--- NOTE | 2022-06-13 19:05 | NUR ---
CLOSING PROVIDED SBAR TO NIGHT NURSE, ENDORSED DVT PROPHYLAXIS REQUEST AND L ELBOW AND BUTTOCKS PICTURE FOR SKIN ECCHYMOSIS., PATIENT IN BED, RESPIRATION EVEN AND NON LABORED, BED LOW AND LOCKED, ALARM BED ON, IV RUNNING ORDERED
[2022-06-13 20:38] VITALS: BP_SYST 113
[2022-06-13 20:39] VITALS: BP_SYST 113
[2022-06-14] VITALS: BP_SYST 158
[2022-06-14 09:13] VITALS: BP_SYST 131
[2022-06-14 10:17] LABS: BASOPHILS % (AUTO) 0.5 % (0.0-2.0); EOSINOPHILS # (AUTO) 0.3 K/uL (0.0-0.4); EOSINOPHILS % (AUTO) 4.2 % (0.0-4.0); HEMATOCRIT 33.9 % (36-48); HEMOGLOBIN 11.1 g/dL (12.0-16.0); LYMPHOCYTES # (AUTO) 1.4 K/uL (1.0-5.5); LYMPHOCYTES % (AUTO) 22.3 % (20.5-51.5); MEAN CORPUSCULAR HEMOGLOBIN 29 pg (27-31); MEAN CORPUSCULAR HGB CONC 33 % (32-36); MEAN CORPUSCULAR VOLUME 89 fL (79.0-98.0); MONOCYTES # (AUTO) 0.6 K/uL (0.0-1.0); MONOCYTES % (AUTO) 10.3 % (1.7-9.3); NEUTROPHILS # (AUTO) 3.9 K/uL (1.8-7.7); NEUTROPHILS % (AUTO) 62.7 % (40.0-70.0); PLATELET COUNT (AUTO) 146 K/uL (130-430); RED BLOOD CELL COUNT(AUTO) 3.82 MIL/uL (4.2-6.2); RED CELL DISTRIBUTION WIDTH 14.4 % (9.0-15.0); WHITE BLOOD COUNT (AUTO) 6.2 K/uL (4.8-10.8)
[2022-06-14 10:51] LABS: ANION GAP 6 (5-15); CALCIUM 8.9 mg/dL (8.4-11.0); CHLORIDE 105 mmol/L (98-107); GLUCOSE 109 mg/dL (70-99); POTASSIUM 4.3 mmol/L (3.5-5.1); UREA NITROGEN, BLOOD 22 mg/dL (8-21)
[2022-06-14 12:39] VITALS: BP_SYST 139
[2022-06-14] MEDS ORDERED: TRAM50TA2 PO (12:46)
[2022-06-14] MEDS: cefTRIAXone 1 GM IVPB PREMIX 50 ML IV SCH (13:20)
[2022-06-14 14:33] VITALS: BP_SYST 139
--- NOTE | 2022-06-14 15:05 | NUR ---
CRYSTAL FINISHER RE- HOME HEALTH SPOKE TO OLIMPIA VICKERS DC PLAN OF HOME HEALTH FOR PT/OT, OLIMPIA MADE AWARE.
[2022-06-14] MEDS ORDERED: CIPR250T4 PO (15:56)
--- NOTE | 2022-06-14 16:25 | NUR ---
Patient discharged home. PIV and tele monitor removed. Discharge instructions explained and given to the daughter. The daughter transported the patient home.
--- NOTE | 2022-06-15 07:09 | NUR ---
PHYSICAL THERAPY CO-SIGN The Physical Therapy Progress Notes documented by Real Property Appraiser have been reviewed. Reviewed/Co-Signed by: Man Washington Documentation Done by: STONEY LIM PTA Addendum: 06/15/22 at 0709 by Man Washington PT Amended: Links added.
== END 2022-06-14 16:25 | disposition home health service (06) | DRG 562 ==
LOC: SED 19:02 → SMU 23:59 → STU 06-13 11:57
PROVIDERS: ADMIT Internal Medicine; ATTEND Internal Medicine
DX: S52.022A Displaced fracture of olecranon process without intraarticular extension of left ulna, initial encounter for closed fracture (principal); N17.0 Acute kidney failure with tubular necrosis; N39.0 Urinary tract infection, site not specified; M06.9 Rheumatoid arthritis, unspecified; E78.5 Hyperlipidemia, unspecified; Z20.822 Contact with and (suspected) exposure to COVID-19; W18.39XA Other fall on same level, initial encounter; E07.9 Disorder of thyroid, unspecified; M47.812 Spondylosis without myelopathy or radiculopathy, cervical region; F03.90 Unspecified dementia, unspecified severity, without behavioral disturbance, psychotic disturbance, mood disturbance, and anxiety; Z88.8 Allergy status to other drugs, medicaments and biological substances; Y93.89 Activity, other specified; Y92.89 Other specified places as the place of occurrence of the external cause; Z79.899 Other long term (current) drug therapy; Y99.8 Other external cause status
CPT/HCPCS: 36415; 70450-TC; 72125-TC; 72192-TC; 73030; 76376; 76536-TC; 80048; 80053; 81000; 82962; 84443; 84484; 85025; 86140; 93880; 96374; 97110-GP; 97116-GP; 97530-GP; 99285; G0378; J0696; J1200; J2060

== ENCOUNTER 2022-07-16 17:31 | Emergency (ER) | payer OTHER ==
[~2022-07-16] VITALS: Ht 162.6 cm; Wt 59.0 kg
[~2022-07-16 17:31] MED LIST changes: +CIPR250T4 PO
[2022-07-16 17:35] VITALS: BP_SYST 162
[2022-07-16 18:52] LABS: BASOPHILS % (AUTO) 0.8 % (0.0-2.0); EOSINOPHILS # (AUTO) 0.2 K/uL (0.0-0.4); EOSINOPHILS % (AUTO) 3.3 % (0.0-4.0); HEMATOCRIT 31.8 % (36-48); HEMOGLOBIN 10.7 g/dL (12.0-16.0); LYMPHOCYTES # (AUTO) 0.8 K/uL (1.0-5.5); LYMPHOCYTES % (AUTO) 16.8 % (20.5-51.5); MEAN CORPUSCULAR HEMOGLOBIN 29 pg (27-31); MEAN CORPUSCULAR HGB CONC 34 % (32-36); MEAN CORPUSCULAR VOLUME 87 fL (79.0-98.0); MONOCYTES # (AUTO) 0.7 K/uL (0.0-1.0); MONOCYTES % (AUTO) 13.4 % (1.7-9.3); NEUTROPHILS # (AUTO) 3.2 K/uL (1.8-7.7); NEUTROPHILS % (AUTO) 65.7 % (40.0-70.0); PLATELET COUNT (AUTO) 160 K/uL (130-430); RED BLOOD CELL COUNT(AUTO) 3.67 MIL/uL (4.2-6.2); RED CELL DISTRIBUTION WIDTH 14.2 % (9.0-15.0); WHITE BLOOD COUNT (AUTO) 4.9 K/uL (4.8-10.8)
[2022-07-16 19:07] LABS: ANION GAP 7 (5-15); CALCIUM 9.9 mg/dL (8.4-11.0); CHLORIDE 105 mmol/L (98-107); CREATININE 0.99 mg/dL (0.55-1.30); GLUCOSE 82 mg/dL (70-99); UREA NITROGEN, BLOOD 23 mg/dL (8-21)
[2022-07-16 19:16] LABS: ALANINE AMINOTRANSFERASE 16 U/L (12-78); ASPARTATE AMINOTRANSFERASE 23 U/L (10-37); TOTAL BILIRUBIN 0.3 mg/dL (0.0-1.0)
[2022-07-16 20:05] VITALS: BP_SYST 162
== END 2022-07-16 20:05 | disposition home or self-care (01) ==
LOC: SED 17:31
DX: R60.0 Localized edema (principal); J45.909 Unspecified asthma, uncomplicated; Z88.1 Allergy status to other antibiotic agents; Z79.899 Other long term (current) drug therapy
CPT/HCPCS: 36415; 71045; 80053; 83880; 84484; 85025; 93005; 99285